=== PATIENT | female | born 1950 | race Caucasian/White ===

== ENCOUNTER → 2016-12-03 | Outpatient (CLI) | payer MEDICARE, OTHER ==
[~2016-12-03] MED LIST: ALLEGRA ALLERGY60 MG PO; ASPIRIN 81M81 MG/TA2 PO; BONIVA PO; CALCIUM 600MG+D1 TAB PO; CENTRUM SILVER1 CTB PO; COLACE 100100 MG/CAP PO; CRANBERRY PO; EPIPEN 2-PAK1 MG/ML IM; LEXAPRO20 MG PO; MIRALAX PA17 GM/Dose PO; OYSTER SHELL C500 MG PO; RECLAST5 MG/100 M IV; VITAMIN D31000 IU PO; VITAMINC500CH
== END ==
LOC: MC.RAD 07:00
DX: Z12.31 Encounter for screening mammogram for malignant neoplasm of breast (principal)

== ENCOUNTER → 2017-12-09 | Outpatient (CLI) | payer MEDICARE, OTHER ==
[~2017-12-09] MED LIST changes: -ALLEGRA ALLERGY60 MG PO; -CALCIUM 600MG+D1 TAB PO; -MIRALAX PA17 GM/Dose PO; -RECLAST5 MG/100 M IV; -VITAMINC500CH
== END ==
LOC: MC.RAD 12-06 07:00
DX: Z12.31 Encounter for screening mammogram for malignant neoplasm of breast (principal)

== ENCOUNTER 2017-12-29 14:45 | Outpatient (CLI) | payer MEDICARE, OTHER ==
[~2017-12-29] VITALS: Ht 160 cm; Wt 89.7 kg
[2017-12-29] MEDS ORDERED: VITAMINC500CH (15:17)
[2017-12-29] MEDS ORDERED: CALCIUM 600MG+D1 TAB PO (15:17)
[2017-12-29] MEDS ORDERED: ALLEGRA ALLERGY60 MG PO (15:18)
[2017-12-29] MEDS ORDERED: MIRALAX PA17 GM/Dose PO (15:18)
[2017-12-29] MEDS ORDERED: RECLAST5 MG/100 M IV (15:19)
[2017-12-29 15:33] VITALS: BP 116/73; PULSE 71; TEMP 98.1
== END 2017-12-29 16:00 | disposition home or self-care (01) ==
LOC: EUO 14:45
DX: M81.0 Age-related osteoporosis without current pathological fracture (principal)
CPT/HCPCS: J3489

== ENCOUNTER 2019-01-04 09:23 | Outpatient (CLI) | payer MEDICARE, OTHER ==
[~2019-01-04] VITALS: Ht 160 cm; Wt 111.4 kg
[~2019-01-04 09:23] MED LIST changes: +ALLEGRA ALLERGY60 MG PO; +CALCIUM 600MG+D1 TAB PO; +MIRALAX PA17 GM/Dose PO; +RECLAST5 MG/100 M IV; +VITAMINC500CH
[2019-01-04 10:17] VITALS: BP 126/65; PULSE 68; TEMP 97.5
== END 2019-01-04 10:48 | disposition home or self-care (01) ==
LOC: EUO 09:23
DX: M81.0 Age-related osteoporosis without current pathological fracture (principal)
CPT/HCPCS: J3489

== ENCOUNTER 2023-09-14 13:47 | Day surgery (SDC) | payer MEDICARE ==
[~2023-09-14] VITALS: Ht 157.5 cm; Wt 82.7 kg
[~2023-09-14 13:47] MED LIST changes: +LR 1,000 ML IV SCH
[2023-09-14 17:03] VITALS: BP 118/68; PULSE 60; TEMP 97.3
[2023-09-14] MEDS ORDERED: CRANBERRY500 M3 PO (17:11)
[2023-09-14] MEDS ORDERED: COMPLETE SENIOR1 TA1 PO (17:12)
[2023-09-14] MEDS ORDERED: CALCIUM/MAGNESI1 T13 PO (17:13)
[2023-09-14] MEDS ORDERED: Rocuronium 50 MG/5 ML Multi-Dose VIAL ONE (18:01)
[2023-09-14] MEDS ORDERED: Lidocaine PF 2% (20 MG/ML) 5 ML VIAL ONE (18:01)
[2023-09-14] MEDS ORDERED: fentaNYL 50 MCG/ML 2 ML VIAL ONE (18:04)
[2023-09-14] MEDS ORDERED: oxyCODONE 5 MG TAB PO PRN (18:30)
[2023-09-14] MEDS ORDERED: Ondansetron 4 MG/2 ML VIAL IV PRN (18:30)
[2023-09-14] MEDS ORDERED: Morphine 4 MG/ML VIAL IV PRN (18:30)
[2023-09-14] MEDS ORDERED: Naloxone 0.4 MG/ML VIAL IV PRN (18:30)
[2023-09-14] MEDS ORDERED: Topical Skin Adhesive 1 EACH (1 ML) TOP ONE (19:24)
[2023-09-14] MEDS ORDERED: Acetaminophen 500 MG TAB PO SCH (19:26)
[2023-09-14 20:45] VITALS: BP 148/60; PULSE 80
[2023-09-14 21:00] VITALS: BP 111/67; PULSE 73
[2023-09-14 21:15] VITALS: BP 119/70; PULSE 75
[2023-09-14 21:30] VITALS: BP 165/102; PULSE 91
--- NOTE | 2023-09-14 21:59 | NUR ---
PATIENT UP TO ROOM FROM PACU AT APPROXIMATELY 2044. POST OP VITALS RUNNING. POST OP FLUIDS INFUSING INTO RIGHT AC. PATIENT DENIES ANY PAIN. PATIENT TOLERATING ICE CHIPS AND SIPS OF WATER, DIET ADVANCED. PATIENT ON RA. POWELL TO DD WITH PINK OUTPUT. PATIENT RESTING IN BED, SCHEDULED TYLENOL ADMINISTERED. NO FURTHER NEEDS. CALL LIGHT IN REACH.
[2023-09-14 22:00] VITALS: BP 152/73; PULSE 94
[2023-09-15] VITALS: BP 150/62; PULSE 78; TEMP 97.9
[2023-09-15 01:00] VITALS: BP_SYST 150
[2023-09-15] MEDS ORDERED: Acetaminophen 500 MG TAB PO SCH (03:30)
[2023-09-15 03:45] VITALS: BP 138/84; PULSE 103; TEMP 98.3
[2023-09-15 04:23] VITALS: BP_SYST 138
[2023-09-15 08:00] VITALS: BP_SYST 115
--- NOTE | 2023-09-15 08:00 | NUR ---
PATIENT IS A&O X2, DISPLAYS FORGETFULNESS, OFTEN ASKING THE SAME QUESTIONS. VSS. NO COMPLAINTS. HEAD TO TOE ASSESSMENT WNL. RIGHT AC IV TO INT. POWELL TO DD. PATIENT RESTING UP IN BED WITH NO NEEDS. PLAN IS TO DISCHARGE HOME LATER THIS AM. PATIENT ALREADY CALLED .
[2023-09-15 08:08] VITALS: BP 115/75; PULSE 109; TEMP 98
[2023-09-15] MEDS ORDERED: LR 1,000 ML IV SCH (09:00)
[2023-09-15] MEDS ORDERED: EPI-PEN JR0.5 MG/ML IM (09:09)
--- NOTE | 2023-09-15 10:24 | NUR ---
SW met with patient to complete initial assessment for discharge planning. Patient verified that she lives in [place] with her /DPOA Ismael ([phone]). Ismael was present for assessment as well. Patient sees Dr. Ramirez as her PCP and uses [facility]. She has a walker, shower chair and grab bars at home. Patient reports being independent with daily activities and states that her helps her a lot. Patient plans to return home at discharge and declines any or home services. Discharge plan: Home
--- NOTE | 2023-09-15 10:25 | NUR ---
PATIENT DISCHARGING HOME, SEE ORDERS. GAVE DISCHARGE INSTRUCTIONS TO PATIENT & , POWELL CATH TEACHING & SUPPLIES, AND DISCUSSED F/U APT. ANSWERED QUESTIONS/CONCERNS. DC'D RIGHT AC IV AND COVERED SITE WITH GAUZE & COBAN. PATIENT DISCHARGED VIA WC TO PERSONAL VEHICLE WITH .
--- NOTE | 2023-09-15 10:31 | NUR ---
Initial visit; Patient thanked Traffic Technician for looking in on her and states she has had Bladder stones that were very painful but she is recovering well. Sarah was pleased that Traffic Technician asked if she would like prayer. She and Traffic Technician prayed together, she thanked Traffic Technician again stating she couldn't do without prayer and God.
--- NOTE | 2023-09-17 12:07 | NUR ---
ticket worker spoke with patient today, as she calls stating she needs help in the home. Worker provided home health information and contacted Dr Huggins's nurse, Trista, to advise patient was reaching out for additional help in the home. Trista advises that patient needs to see Dr Ramirez to discuss home health. Worker shared this with the patient and encouraged her to call Dr Huggins's office to schedule an appointment. Patient verbalizes understanding of the above information.
== END 2023-09-15 10:25 | disposition home or self-care (01) ==
LOC: SDCO 13:47 → SURG 21:09 → SDCO 09-15 10:25
DX: N21.0 Calculus in bladder (principal); Z87.891 Personal history of nicotine dependence
CPT/HCPCS: OP; A9284; J1920; J2704; J3010; J7120

== ENCOUNTER 2023-09-17 20:40 | Inpatient (IN) | payer MEDICARE ==
[~2023-09-17] VITALS: Ht 157.5 cm; Wt 83.2 kg
[~2023-09-17 20:40] MED LIST changes: +CALCIUM/MAGNESI1 T13 PO; +COMPLETE SENIOR1 TA1 PO; +CRANBERRY500 M3 PO; -LR 1,000 ML IV SCH; -VITAMINC500CH; +VITAMINC500CH PO
[2023-09-17 22:05] VITALS: BP 152/88; PULSE 113; TEMP 98.2
[2023-09-17 22:19] VITALS: BP_SYST 152
[2023-09-17] MEDS ORDERED: TYLENOL 325MG325 MG PO (22:28)
[2023-09-17 22:30] VITALS: BP 142/68; PULSE 90; TEMP 98
[2023-09-17] MEDS ORDERED: Docusate Sodium 100 MG CAP PO SCH (22:42)
[2023-09-17] MEDS ORDERED: Polyethylene Glycol 3350 17 GM PDS PO SCH (22:42)
[2023-09-17] MEDS ORDERED: Acetaminophen 325 MG TAB PO PRN ×2 (22:45→23:15)
[2023-09-17] MEDS ORDERED: Bisacodyl 5 MG TAB PO SCH (22:45)
[2023-09-17] MEDS ORDERED: Fexofenadine 60 MG BID **** subs to Loratadine 10 MG DAILY PO PRN (22:45)
[2023-09-17] MEDS ORDERED: LR 1,000 ML IV SCH (22:45)
[2023-09-18] VITALS (19 sets, daily range): BP systolic 101–146; BP diastolic 45–93; PULSE 98–117; TEMP 97.5–98.7
[2023-09-18] MEDS ORDERED: Cefepime 1 G in Water For Injection,Sterile 10 ML IV SCH
[2023-09-18 07:02] LABS: CREATININE, serum 0.64 mg/dL (0.57-1.11); POTASSIUM 3.7 mEq/L (3.5-4.5)
[2023-09-18] MEDS ORDERED: Miconazole 2% Topical Powder BOTTLE TP SCH (09:00)
[2023-09-18] MEDS ORDERED: Ascorbic Acid 500 MG TAB PO SCH (09:00)
[2023-09-18] MEDS ORDERED: Pantoprazole 40 MG in NS 10 ML IV SCH (09:00)
[2023-09-18] MEDS ORDERED: Nystatin Powder **** subs to Miconazole Powder TOP SCH (09:00)
[2023-09-18] MEDS ORDERED: Loratadine 10 MG TAB PO SCH (09:00)
[2023-09-18] MEDS ORDERED: Lidocaine PF 2% (20 MG/ML) 5 ML VIAL ONE (09:51)
[2023-09-18] MEDS ORDERED: Phenylephrine 10 MG/ML VIAL ONE (09:51)
[2023-09-18] MEDS ORDERED: Ondansetron 4 MG/2 ML VIAL ONE (09:51)
[2023-09-18] MEDS ORDERED: fentaNYL 50 MCG/ML 2 ML VIAL ONE (09:51)
[2023-09-18] MEDS ORDERED: Ondansetron 4 MG/2 ML VIAL IV PRN (10:00)
[2023-09-18] MEDS ORDERED: fentaNYL 50 MCG/ML 1 ML SYRINGE/VIAL [PACU/SDC ONLY] IV PRN (10:00)
[2023-09-18] MEDS ORDERED: HYDROmorphone 1 MG/1 ML SYRINGE [PACU/SDC ONLY] IV PRN (10:00)
[2023-09-18] MEDS ORDERED: Lidocaine 2% (20 MG/ML) 20 ML UROJET UR ONE (11:00)
[2023-09-18] MEDS ORDERED: Iohexol 350 - 100 ML VIAL URETER-B ONE (11:00)
[2023-09-18 13:27] LABS: BASO % 0.2 % (0.0-2.0); EOS % 0.4 % (0.0-4.0); GRAN # 9.1 K/mm3 (1.4-6.5); GRAN % 84.4 % (42.2-75.2); HEMATOCRIT 42.2 % (37.0-47.0); HEMOGLOBIN 13.7 g/dl (12.5-16.0); LYMPH # 0.8 K/mm3 (1.2-3.4); LYMPH % 7.8 % (20.0-51.0); MEAN CELL VOLUME 92 fl (80.0-100.0); MEAN CORPUSCULAR HEMOGLOBIN 30 pg (27-31); MEAN CORPUSCULAR HGB CONC 33 g/dl (33.0-37.0); MEAN PLATELET VOLUME 11.7 fl (7.4-10.4); MONO # 0.7 K/mm3 (0.1-0.6); MONO % 6.8 % (1.7-9.3); PLATELET COUNT 221 K/mm3 (130-400); RED BLOOD COUNT 4.58 M/mm3 (4.10-5.30); REDCELL DISTRIBUTION WIDTH-CV 13.1 % (11.5-14.5)
[2023-09-19] VITALS (13 sets, daily range): BP systolic 106–131; BP diastolic 71–84; PULSE 99–109; TEMP 97.5–98.3
[2023-09-19 06:32] LABS: BASO % 0.2 % (0.0-2.0); EOS # 0.2 K/mm3 (0.0-0.7); EOS % 2.5 % (0.0-4.0); GRAN % 71.1 % (42.2-75.2); HEMOGLOBIN 11.9 g/dl (12.5-16.0); LYMPH # 1.4 K/mm3 (1.2-3.4); LYMPH % 16.9 % (20.0-51.0); MEAN CELL VOLUME 92 fl (80.0-100.0); MEAN CORPUSCULAR HEMOGLOBIN 31 pg (27-31); MEAN CORPUSCULAR HGB CONC 33 g/dl (33.0-37.0); MEAN PLATELET VOLUME 11.3 fl (7.4-10.4); MONO # 0.7 K/mm3 (0.1-0.6); MONO % 8.8 % (1.7-9.3); PLATELET COUNT 215 K/mm3 (130-400); REDCELL DISTRIBUTION WIDTH-CV 13.2 % (11.5-14.5)
[2023-09-19 06:43] LABS: HEMATOCRIT 35.9 % (37.0-47.0)
[2023-09-19 06:57] LABS: CALCIUM 9.4 mg/dL (8.4-10.2); CREATININE, serum 0.66 mg/dL (0.57-1.11); POTASSIUM 3.4 mEq/L (3.5-4.5)
[2023-09-20] VITALS (11 sets, daily range): BP systolic 120–146; BP diastolic 80–85; PULSE 97–105; TEMP 97.6–98.9
[2023-09-20 06:23] LABS: BASO % 0.3 % (0.0-2.0); EOS # 0.5 K/mm3 (0.0-0.7); EOS % 4.8 % (0.0-4.0); GRAN # 6.7 K/mm3 (1.4-6.5); GRAN % 69.8 % (42.2-75.2); HEMOGLOBIN 11.5 g/dl (12.5-16.0); LYMPH # 1.6 K/mm3 (1.2-3.4); LYMPH % 16.4 % (20.0-51.0); MEAN CELL VOLUME 92 fl (80.0-100.0); MEAN CORPUSCULAR HEMOGLOBIN 30 pg (27-31); MEAN CORPUSCULAR HGB CONC 33 g/dl (33.0-37.0); MEAN PLATELET VOLUME 10.6 fl (7.4-10.4); MONO # 0.7 K/mm3 (0.1-0.6); MONO % 7.6 % (1.7-9.3); PLATELET COUNT 221 K/mm3 (130-400); REDCELL DISTRIBUTION WIDTH-CV 13.2 % (11.5-14.5)
[2023-09-20 06:46] LABS: CALCIUM 9.3 mg/dL (8.4-10.2); CREATININE, serum 0.65 mg/dL (0.57-1.11); MAGNESIUM 1.9 mg/dL (1.6-2.6); POTASSIUM 3.6 mEq/L (3.5-4.5)
[2023-09-21] VITALS (7 sets, daily range): BP systolic 120–137; BP diastolic 80–83; PULSE 102–105; TEMP 97.5–98.4
[2023-09-21] MEDS ORDERED: AMOXICILLIN 8751 TAB PO (12:18)
== END 2023-09-21 13:54 | DRG 872 ==
LOC: SURG 20:40
PROVIDERS: Nurse Practitioner Family; ADMIT Internal Medicine
DX: A41.9 Sepsis, unspecified organism (principal); N39.0 Urinary tract infection, site not specified; I50.30 Unspecified diastolic (congestive) heart failure; N13.5 Crossing vessel and stricture of ureter without hydronephrosis; I05.0 Rheumatic mitral stenosis; N31.9 Neuromuscular dysfunction of bladder, unspecified; K81.9 Cholecystitis, unspecified; Z66 Do not resuscitate
CPT/HCPCS: A9284; C1769; C2617; C9113; J0690; J0692; J2371; J2405; J2704; J3010; J7120; Q9967

== ENCOUNTER 2023-10-26 13:04 | Day surgery (SDC) | payer MEDICARE ==
[~2023-10-26] VITALS: Ht 157.5 cm; Wt 79.5 kg
[~2023-10-26 13:04] MED LIST changes: +AMOXICILLIN 8751 TAB PO; +LR 1,000 ML IV SCH; +TYLENOL 325MG325 MG PO
[2023-10-26 13:57] VITALS: BP 119/72; PULSE 92; TEMP 97.5
[2023-10-26] MEDS ORDERED: Lidocaine PF 2% (20 MG/ML) 5 ML VIAL ONE (15:12)
[2023-10-26] MEDS ORDERED: fentaNYL 50 MCG/ML 2 ML VIAL ONE (15:15)
[2023-10-26] MEDS ORDERED: NS 10 ML IV ONE (15:16)
[2023-10-26] MEDS ORDERED: dexAMETHasone 10 MG/ML VIAL ONE (15:51)
[2023-10-26] MEDS ORDERED: Ondansetron 4 MG/2 ML VIAL ONE (15:51)
--- NOTE | 2023-10-26 16:01 | NUR ---
JAMMIE received call from OP surgery nurse stating patient needs to be set up for for wound care. JAMMIE went to unit and spok with Dr. Oneill who states that patient will need wound care to start on . He stated he will write orders for wound care. JAMMIE then called patient's at home who stated that patient has been on service with [facility] and they just stopped a couple of days ago. JAMMIE explained to that patient will need wound care and SW can contact [facility] to discuss. agreeable. JAMMIE spoke with Brian at [facility] who stated that patient is on service and they did stop therapy a couple of days ago. He stated he would need wound description and wound care orders. No documentation in chart at this time. JAMMIE will review chart tomorrow morning since patient is curently in procedure. JAMMIE will fax records to [facility] tomorrow morning. JAMMIE called ambulatory surgery unit and communicated [facility] requests to RN. she will inform Dr. Oneill.
[2023-10-26] MEDS ORDERED: hydrALAZINE 20 MG/ML 1 ML VIAL IV PRN (16:15)
[2023-10-26] MEDS ORDERED: HYDROmorphone 1 MG/1 ML SYRINGE [PACU/SDC ONLY] IV PRN (16:15)
[2023-10-26] MEDS ORDERED: Meperidine 50 MG/ML 1 ML VIAL IV PRN (16:15)
[2023-10-26] MEDS ORDERED: Ondansetron 4 MG/2 ML VIAL IV PRN ×2 (16:15→17:00)
[2023-10-26] MEDS ORDERED: fentaNYL 50 MCG/ML 1 ML SYRINGE/VIAL [PACU/SDC ONLY] IV PRN (16:15)
[2023-10-26] MEDS ORDERED: Lidocaine 2% (20 MG/ML) 20 ML UROJET UR ONE (16:48)
[2023-10-26] MEDS ORDERED: Naloxone 0.4 MG/ML VIAL IV PRN (17:00)
[2023-10-26] MEDS ORDERED: Hyoscyamine 0.125 MG Sublingual TAB SL PRN (17:00)
[2023-10-26] MEDS ORDERED: Acetaminophen 325 MG TAB PO PRN (17:00)
[2023-10-26] MEDS ORDERED: CEPHALEXIN500 M1 PO (17:08)
[2023-10-26 17:40] VITALS: BP 140/50; PULSE 94; TEMP 97.5
[2023-10-26 17:55] VITALS: BP 151/68; PULSE 92
[2023-10-26] MEDS ORDERED: Acetaminophen 500 MG TAB PO SCH (17:59)
--- NOTE | 2023-10-26 18:15 | NUR ---
1740 RETURNS TO ROOM 1 PER CART. WITH HOB ELEVATED 40 DEGREES. AWAKE, ALERT. RESP UNLABORED. VITAL SIGNS OBTAINED. ABD SOFT. LOWER MID ABD DRESSING CLEAN DRY AND INTACT. DENIES PAIN OR URINARY URGENCY. CALL LIGHT AT SIDE 1755 HOB ELEVATED 80 DEGREES. TOLERATES PO WATER, SALTINE CRACKERS AND ICE CREAM WITHOUT NAUSEA 1800 DISCHARGE INSTRUCTIONS REVIEWED. PATIENT VERBALIZES UNDERSTANDING. COPY PROVIDED IN DISCHARGE FOLDER 1805 SITS ON EDGE OF BED AND DRESSES, BOTH WITH ASSIST, THEN STAND TRANSFERS TO WHEELCHAIR WITH 2 ASSIST
--- NOTE | 2023-10-26 18:38 | NUR ---
1545 CLAUDE FROM PROFESSOR OF MUSIC HERE, STATES THAT TOMORROW SHE WILL FAX ORDERS PLACED FOR HOME HEALTH CARE TO APPROPRIATE RECIPIENT IN ORDER TO IMPLEMENT HOME HEALTH CARE VISITS FOR DRESSING CHANGES
--- NOTE | 2023-10-27 08:24 | NUR ---
JAMMIE faxed discharge orders and clinicals to [facility].
== END 2023-10-26 18:15 | disposition home or self-care (01) ==
LOC: SDCO 13:04
DX: N20.1 Calculus of ureter (principal); L02.211 Cutaneous abscess of abdominal wall; Z87.891 Personal history of nicotine dependence
CPT/HCPCS: C1726; C1769; C2617; J0690; J1100; J2175; J2405; J2704; J3010; J7120

== ENCOUNTER 2023-10-27 15:25 | Inpatient (IN) | payer MEDICARE ==
[~2023-10-27] VITALS: Ht 157.5 cm; Wt 79.5 kg
[~2023-10-27 15:25] MED LIST changes: +CEPHALEXIN500 M1 PO; -LR 1,000 ML IV SCH
[2023-10-27 16:44] LABS: HEMATOCRIT 42.2 % (37.0-47.0); HEMOGLOBIN 13.7 g/dl (12.5-16.0); MEAN CELL VOLUME 95 fl (80.0-100.0); MEAN CORPUSCULAR HEMOGLOBIN 31 pg (27-31); MEAN CORPUSCULAR HGB CONC 33 g/dl (33.0-37.0); PLATELET COUNT 275 K/mm3 (130-400); RED BLOOD COUNT 4.45 M/mm3 (4.10-5.30); REDCELL DISTRIBUTION WIDTH-CV 13.2 % (11.5-14.5)
[2023-10-27] MEDS ORDERED: LR 1,000 ML IV ONE (16:45)
[2023-10-27 17:05] LABS: ALBUMIN 2.9 g/dL (3.4-4.8); BILIRUBIN,TOTAL 0.3 mg/dL (0.2-1.2); CALCIUM 9.3 mg/dL (8.4-10.2); CREATININE, serum 0.94 mg/dL (0.57-1.11); MAGNESIUM 1.8 mg/dL (1.6-2.6); POTASSIUM 3.9 mEq/L (3.5-4.5); TOTAL PROTEIN 7.5 g/dl (6.2-8.1)
[2023-10-27 17:12] LABS: BAND 12 % (0-10); LYMPHOCYTE 1 % (20.0-51.0); NEUTROPHILS 85 % (42.0-75.2)
[2023-10-27 17:20] LABS: URINE APPEARANCE CLEAR (CLEAR/HAZY); URINE BLOOD 3+ (NEGATIVE); URINE COLOR YELLOW (YELLOW); URINE GLUCOSE 1+ (NEGATIVE); URINE KETONE NEGATIVE (NEGATIVE); URINE NITRATE NEGATIVE (NEGATIVE); URINE PROTEIN(semi-quant) 2+ (NEGATIVE)
[2023-10-27] MEDS ORDERED: NS 100 ML IV SCH (17:25)
[2023-10-27] MEDS ORDERED: Iohexol 300 - 100 ML VIAL IV ONE (17:29)
[2023-10-27 17:37] LABS: COLLECTION METHOD CLEAN CATCH
[2023-10-27] MEDS ORDERED: cefTRIAXone 1 G in Water For Injection,Sterile 10 ML IV ONE (18:15)
[2023-10-27] MEDS ORDERED: LR 1,000 ML IV SCH (18:30)
[2023-10-27] MEDS ORDERED: Docusate Sodium 100 MG CAP PO PRN (18:30)
[2023-10-27] MEDS ORDERED: Acetaminophen 325 MG TAB PO PRN (18:30)
[2023-10-27] MEDS ORDERED: Bisacodyl 5 MG TAB PO PRN (18:30)
--- NOTE | 2023-10-27 20:00 | NUR ---
PT ARRIVED TO ROOM 323 FROM ED VIA STRETCHER & TRANSFERRED OVER VIA SLIDEBOARD. HERE FOR UROSEPSIS. PT IS A&O X3 & DROWSY, REPORTS SHE "JUST WANTS TO SLEEP". PT IS TACHYCARDIC, OTHER VITALS WNL. POWELL TO DD WITH YELLOW OUTPUT & SOME SEDIMENT. IV ABX INFUSING TO LEFT AC VIA PUMP & LR AT 100MLS/HR STARTED. PT HAS GAUZE DRESSING TO LOWER ABD ABCESS, SOME BLOODY DRAINAGE NOTED. ADMISSION COMPLETED EXCEPT MED REC, WHEN ASKING PT ABOUT MEDICATION SHE TAKES AT HOME SHE STATES "YES I WANT THEM" BUT STATES SHE DOES NOT KNOW WHAT THEY ARE, REPORTS HER WILL BRING IN A LIST TOMORROW. ALSO ASKED PT TO VERIFY HER ALLERGIES & PT LAUGHED & STATED "I HAVE A LOT, I DONT KNOW THEM". PT DENYING PAIN OR N/V. ORIENTED PT TO ROOM. CALL LIGHT IN REACH
[2023-10-27 20:05] VITALS: BP 132/71; PULSE 114; TEMP 99.9
[2023-10-27] MEDS ORDERED: Insulin Lispro (HumaLOG) SQ SCH (21:00)
--- NOTE | 2023-10-27 23:00 | NUR ---
DRESSING TO LOWER ABD ABCESS CHANGED TO WET TO DRY PER ORDERS. PT NOW NPO & VOICES UNDERSTANDING. CALL LIGHT IN REACH
[2023-10-27 23:44] VITALS: BP 160/80; PULSE 122; TEMP 97.7
[2023-10-28] VITALS (8 sets, daily range): BP systolic 100–131; BP diastolic 57–84; PULSE 94–107; TEMP 98–98.9
--- NOTE | 2023-10-28 05:35 | NUR ---
PT RESTING IN BED WITH UNLABORED RESP. DENYING NEEDS. CALL LIGHT IN REACH
[2023-10-28 06:00] LABS: CALCIUM 8.2 mg/dL (8.4-10.2); CREATININE, serum 0.75 mg/dL (0.57-1.11); POTASSIUM 3.4 mEq/L (3.5-4.5)
[2023-10-28 06:04] LABS: BASO % 0.1 % (0.0-2.0); GRAN # 12.3 K/mm3 (1.4-6.5); GRAN % 88.7 % (42.2-75.2); HEMATOCRIT 37.3 % (37.0-47.0); HEMOGLOBIN 12.6 g/dl (12.5-16.0); LYMPH # 0.6 K/mm3 (1.2-3.4); LYMPH % 4.4 % (20.0-51.0); MEAN CORPUSCULAR HEMOGLOBIN 30 pg (27-31); MEAN CORPUSCULAR HGB CONC 34 g/dl (33.0-37.0); MONO # 0.9 K/mm3 (0.1-0.6); MONO % 6.3 % (1.7-9.3); PLATELET COUNT 225 K/mm3 (130-400); RED BLOOD COUNT 4.14 M/mm3 (4.10-5.30); REDCELL DISTRIBUTION WIDTH-CV 13.3 % (11.5-14.5)
[2023-10-28 06:17] LABS: MEAN CELL VOLUME 90 fl (80.0-100.0)
[2023-10-28] MEDS ORDERED: Dextrose (Glucose) 15 GM (4 x 3.75 GM) Chewable TABLET PACK PO PRN (07:45)
[2023-10-28] MEDS ORDERED: Glucagon 1 MG VIAL IM PRN (07:45)
[2023-10-28] MEDS ORDERED: Dextrose 50% Water 25 GM/50 ML SYRINGE IV PRN (07:45)
--- NOTE | 2023-10-28 08:26 | NUR ---
SHIFT ASSESSMENT COMPLETED AT THIS TIME. PT A&OX4 AND DENIES PAIN, SOB, AND NAUSEA AT THIS TIME. PT REQUESTS NAMES IF ANTIBIOTICS SHE IS RECIEVING. THIS NURSE GAVE THOSE NAMES OF MEDICATIONS. PT REMAINS NPO D/T SPEECH EVAL THIS MORNING FOR POSSIBLE ASPIRATION. ORAL MORNING MEDICATIONS HELD. PT RESTING IN BED AT THIS TIME WITH NO FURTHER NEEDS. POWELL CATHETER INTACT WITH CLEAR YELLOW URINE IN BAG. FALL PRECAUTIONS IN PLACE. CALL LIGHT WIHTIN REACH.
[2023-10-28] MEDS ORDERED: Potassium Chloride 10 mEq/100 mL IV Soln IV SCH (08:45)
[2023-10-28] MEDS ORDERED: Calcium Citrate/Vit D3 200 mg-250 Units TAB PO SCH (09:00)
[2023-10-28] MEDS ORDERED: Polyethylene Glycol 3350 17 GM PDS PO SCH (09:00)
[2023-10-28] MEDS ORDERED: Loratadine 10 MG TAB PO SCH (09:00)
[2023-10-28] MEDS ORDERED: Fexofenadine 60 MG BID **** subs to Loratadine 10 MG DAILY PO SCH (09:00)
[2023-10-28] MEDS ORDERED: Ascorbic Acid 500 MG TAB PO SCH (09:00)
[2023-10-28] MEDS ORDERED: Vancomycin 1.25 GM,Special Dose/Pharmacy Prepared 1.25 GM in NS 250 ML IV SCH (11:00)
--- NOTE | 2023-10-28 11:05 | NUR ---
African Studies Professor met with patient to discuss discharge planning. Patient lives in [facility] with her , Ismael (ph#[phone]) [address] sees Dr. Ramirez for primary care out of [facility]. Patient gets medications from [facility] with no difficulties. Patient does not drive and relies on Ismael for transportation to medical appointments. Patient uses a walker at all times after a recent fall. Patient is mostly independent with ADLS but stated her helps her wash her feet. Patient stated she has DPOA-HC designating Ismael. Patient is hopeful to return home but advised if any rehab is recommended she has been to [facility] before. SW contacted patient's , Ismael to check and explain discharge planning process. Discharge Plan: Home, pending PT/OT eval and recommendations
--- NOTE | 2023-10-28 11:57 | NUR ---
Data: Spiritual care visit attempted. Patient was sleeping. Assessment: None. Patient was sleeping. Plan of Care: Chaplains will remain available as needed/requested while Patient is admitted to this hospital.
[2023-10-28] MEDS ORDERED: *Potassium Replacement Protocol MC SCH (12:15)
--- NOTE | 2023-10-28 17:15 | NUR ---
urology rounding at this time. plan is outpatient procedure next week. unless patient is still in the hospital for medical needs.
--- NOTE | 2023-10-28 20:00 | NUR ---
Assessment complete. A&Ox3. Denies pain/nausea/shortness of breath. VS stable. Neuro checks WNL. Currently on RA. Left AC INT flushes without difficulty-no s/s of infiltration noted. LR@100ml/hr. De Anda cath with yellow cloudy urine. Tolerating PO. Plan of care discussed for this shift to include meds/pain control/dressing change/calling for questions/concerns. Verbalizes understanding. Call light in reach. WIll monitor.
--- NOTE | 2023-10-28 22:00 | NUR ---
Dressing change completed at this time. Abdominal wound packing removed. New Iodoform placed, covered with saline 4x4s, ABD and tape. Patient tolerated well. Will monitor.
[2023-10-29] VITALS (12 sets, daily range): BP systolic 112–139; BP diastolic 66–96; PULSE 78–100; TEMP 97.4–98.6
--- NOTE | 2023-10-29 01:00 | NUR ---
Patient resting with eyes closed. No s/s of pain noted. Will monitor.
--- NOTE | 2023-10-29 05:21 | NUR ---
Patient slept most of night. Denied pain/nausea/shortness of breath. VS stable. DId have a large liquid incontinent stool this AM. LR@100ml/hr to left AC IV infusing without difficulty. NO s/s of infiltration noted. De Anda cath with yellow cloudy urine. Denies current questions/concerns. Call light in reach. Will monitor.
[2023-10-29 06:59] LABS: BASO % 0.5 % (0.0-2.0); EOS # 0.1 K/mm3 (0.0-0.7); EOS % 0.9 % (0.0-4.0); GRAN # 5.2 K/mm3 (1.4-6.5); HEMATOCRIT 37.6 % (37.0-47.0); HEMOGLOBIN 12.4 g/dl (12.5-16.0); LYMPH # 0.7 K/mm3 (1.2-3.4); LYMPH % 11.1 % (20.0-51.0); MEAN CELL VOLUME 94 fl (80.0-100.0); MEAN CORPUSCULAR HEMOGLOBIN 31 pg (27-31); MEAN CORPUSCULAR HGB CONC 33 g/dl (33.0-37.0); MEAN PLATELET VOLUME 10.7 fl (7.4-10.4); MONO # 0.6 K/mm3 (0.1-0.6); MONO % 9.2 % (1.7-9.3); PLATELET COUNT 178 K/mm3 (130-400); RED BLOOD COUNT 3.99 M/mm3 (4.10-5.30); REDCELL DISTRIBUTION WIDTH-CV 13.5 % (11.5-14.5)
[2023-10-29 07:07] LABS: CALCIUM 8.1 mg/dL (8.4-10.2); CREATININE, serum 0.67 mg/dL (0.57-1.11); POTASSIUM 3.6 mEq/L (3.5-4.5)
[2023-10-29] MEDS ORDERED: Potassium Bicarbonate/Citrate 20 MEQ Effervescent TAB PO SCH (08:30)
--- NOTE | 2023-10-29 11:25 | NUR ---
PATIENT ALERT AND ORIENTED X4. VSS. PATIENT HERE FOR UROSEPSIS. POWELL TO DD WITH GEORGINA OUTPUT. IV TO LEFT AC WITH LR RUNNING AT 75ML/HOUR. AM MEDS ADMINISTERED. PATIENT DENIES ANY PAIN THIS AM. NO FURTHER NEEDS. CALL LIGHT IN REACH. BED ALARM ON.
--- NOTE | 2023-10-29 13:49 | NUR ---
Bundling Machine Operator met with patient to discuss PT/OT recommendation for HH vs SNF. Patient put her , Ismael on speakerphone to join in discussion. Ismael stated to patient that he would support whatever she decided. Ultimately, patient prefers to be at home and would like to return home with [facility] (patient currently on service with them). JAMMIE contacted Sanjeev at [facility] and sent referral via secure email. Discharge Plan; Home with [facility]
--- NOTE | 2023-10-29 17:30 | NUR ---
Accelerator Operator was approached by patient's RN who stated patient would like to speak with SW. SW followed up with patient who stated she feels she will need SNF instead of HH. Patient's first preference is [facility]. SW discussed other local options and patient stated she would be open to SW sending referrals to [facility] and [facility] as additional options. SW sent referrals to all three via secure email. Discharge Plan: SNF, referrals pending
--- NOTE | 2023-10-29 20:00 | NUR ---
PATIENT IS A&O. VSS. C/O NAUSEA AND NOTED SMALL AMOUNTS OF EMESIS WITH PHLEGM. CALLED HOSPITALIST, GAVE IV ZOFRAN. PATIENT ALSO PLACED ON BED MURGUIA SHE WAS WEAK & DIZZY. PATIENT HAD A LARGE, LOOSE BM AND REPORTS SHE FEELS MUCH BETTER NOW. IV ABX INFUSING VIA PUMP INTO RIGHT HAND IV. ABD DSG NOTED VERY SMALL AREA OF DRAINAGE AND IS PACKED WITH IODAFORM, 4X4'S, ABD & FOAM TAPE. POWELL TO DD. HEAD TO TOE ASSESSMENT COMPLETE. NO OTHER NEEDS AT THIS TIME. CALL LIGHT IN REACH.
[2023-10-29] MEDS ORDERED: Ondansetron 4 MG/2 ML VIAL IV PRN (20:15)
[2023-10-30] VITALS (11 sets, daily range): BP systolic 113–134; BP diastolic 77–86; PULSE 82–108; TEMP 97.7–98.3
--- NOTE | 2023-10-30 | NUR ---
CHANGED ABD DSG, REMOVED OLD PACKING AND INSERTED IODAFORM PACKING, WET TO DRY, 4X4'S, ABD & HYPAFIX. NOTED FOUL SMELL AND LARGE AMOUNTS OF SEROSANG FLUID DRAINAGE. PATIENT TOLERATED WELL. REPOSITIONED TO COMFORT. CALL LIGHT IN REACH.
--- NOTE | 2023-10-30 02:15 | NUR ---
PATIENT CALLED OUT STATING SHE FEELS WET AND THINKS HER POWELL LEAKED AGAIN. UPON ASSESSMENT, PATIENT'S POWELL DOES APPEAR TO BE LEAKING URINE. DEFLATED POWELL BALLOON AND ADVANCED POWELL, INSTILLED AN ADDITIONAL 5CC OF FLUID INTO POWELL BALLOON. PATIENT CLEANED UP AND NEW LINENS & GOWN PROVIDED. ABD DSG IS CD&I. PATIENT REPOSITIONED TO COMFORT AND CALL LIGHT IN REACH.
[2023-10-30 06:33] LABS: BASO % 0.3 % (0.0-2.0); EOS # 0.2 K/mm3 (0.0-0.7); EOS % 2.4 % (0.0-4.0); GRAN # 4.3 K/mm3 (1.4-6.5); HEMATOCRIT 37.5 % (37.0-47.0); HEMOGLOBIN 12.4 g/dl (12.5-16.0); LYMPH # 1.3 K/mm3 (1.2-3.4); LYMPH % 20.9 % (20.0-51.0); MEAN CELL VOLUME 93 fl (80.0-100.0); MEAN CORPUSCULAR HEMOGLOBIN 31 pg (27-31); MEAN CORPUSCULAR HGB CONC 33 g/dl (33.0-37.0); MEAN PLATELET VOLUME 10.9 fl (7.4-10.4); MONO # 0.4 K/mm3 (0.1-0.6); MONO % 7.1 % (1.7-9.3); PLATELET COUNT 203 K/mm3 (130-400); RED BLOOD COUNT 4.05 M/mm3 (4.10-5.30); REDCELL DISTRIBUTION WIDTH-CV 13.4 % (11.5-14.5)
[2023-10-30 06:37] LABS: CALCIUM 8.6 mg/dL (8.4-10.2); CREATININE, serum 0.7 mg/dL (0.57-1.11); POTASSIUM 3.8 mEq/L (3.5-4.5)
[2023-10-30] MEDS ORDERED: *Potassium Replacement Protocol MC SCH (07:30)
[2023-10-30] MEDS ORDERED: Potassium Bicarbonate/Citrate 20 MEQ Effervescent TAB PO ONE (07:30)
--- NOTE | 2023-10-30 09:53 | NUR ---
PATIENT ALERT AND ORIENTED X4. VSS. PATIENT HERE FOR UROSEPSIS. IV TO RIGHT HAND INT WITH FLUIDS RUNNING AT 75ML/HOUR. PATIENT ON RA. POWELL TO DD WITH GEORGINA OUTPUT. AM MEDS ADMINISTERED. NO FURTHER NEEDS. CALL LIGHT IN REACH. BED ALARM ON.
--- NOTE | 2023-10-30 12:31 | NUR ---
JAMMIE notified that patient can be stable for discharge to SNF today if bed available. JAMMIE spoke with Denise at [facility], patient's first choice, and was informed that they will not be able to admit until Wednesday when nursing can look at her clinicals related to wound care. JAMMIE spoke with Esau at [facility] who states that they do not have a bed available today but will continue to review clincials. Updates sent via secure email to both facilities. Discharge plan: SNF
--- NOTE | 2023-10-30 20:30 | NUR ---
UPON SHIFT ASSESSMENT, PATIENT WAS AWAKE IN BED AND AXO X4. DRESSING TO ABDOMEN IS CDI. NEUROS ARE WNL/BASELINE. POWELL IS LEAKING AND NEW 18FR PLACED. NEW POWELL DRAINING PALE YELLOW URINE. PATIENT VOICES FRUSTRATION OVER SITUATION AND BECOMING MORE OF [place] [facility] -SOCIAL WORK AWARE AND LOOKING FOR REHAB PLACEMENT. EDUCATION PROVIDED. PATIENT STATES NO OTHER NEEDS AT THIS TIME AND DENIES PAIN. CALL LIGHT WITHIN REACH, BED ALARM ON.
[2023-10-30] MEDS ORDERED: Linezolid 600 MG TAB PO SCH (21:00)
[2023-10-31] VITALS (12 sets, daily range): BP systolic 101–144; BP diastolic 68–94; PULSE 79–100; TEMP 98–98.6
--- NOTE | 2023-10-31 04:00 | NUR ---
USING ASEPTIC TECHNIQUE, DRESSING CHANGE PERFORMED. PATIENT TOLERATED WELL.
[2023-10-31] MEDS ORDERED: Potassium Bicarbonate/Citrate 20 MEQ Effervescent TAB PO ONE (08:00)
--- NOTE | 2023-10-31 10:22 | NUR ---
PATIENT ALERT AND ORIENTED X4. VSS. PATIENT HERE FOR UROSEPSIS. PATIENT DENIES PAIN THIS AM. IV TO RIGHT FA INT AND FLUSHES WELL. POWELL TO DD WITH GEORGINA OUTPUT. DRESSING INTACT. AM MEDS ADMINISTERED. PATIENT EATING BREAKFAST, REPORTS NOT SLEEPING WELL AT NIGHT, WOULD LIKE TO BE LEFT ALONE THIS AFTERNOON TO NAP. NO FURTHER NEEDS. CALL LIGHT IN REACH. BED ALARM ON.
--- NOTE | 2023-10-31 11:06 | NUR ---
SW reviewed Medicare IM form with patient in preparation for possible discharge tomorrow. Patient voiced understanding and signed form . Original on chart and copy provided to patient. Discharge plan: SNF
--- NOTE | 2023-10-31 12:29 | NUR ---
Clinical updates sent to [facility] via secure email
[2023-10-31] MEDS ORDERED: Miconazole 2% Topical Powder BOTTLE TP PRN (16:45)
--- NOTE | 2023-10-31 19:25 | NUR ---
ASSISTED PT TO BSC WITH 2 ASSIST/GAIT BELT. HAS SMALL LOOSE BR STOOL. POWELL CATHETER SECURE DRAINING YELLOW URINE. DRSG INTACT TO ABD. BACK TO BED.
--- NOTE | 2023-10-31 21:30 | NUR ---
IV ANTIBIOTIC INFUSING TO RT HAND SITE WITHOUT PROBLEM. DRSG CHANGED TO LOWER ABD, REMOVED PACKING AND REPLACED. SALINE GAUZE PLACED AND ABD COVERING. PT HAD SEROUS FLUID LEAKING FROM HOLE PRIOR TO REPLACING DRSG.
[2023-10-31] MEDS ORDERED: Cholestyramine/Aspartame (Sugar Free) 4 GM PACK PO SCH (22:00)
--- NOTE | 2023-10-31 23:45 | NUR ---
ASSISTED TO BSC FOR BM.
[2023-11-01] VITALS (10 sets, daily range): BP systolic 108–120; BP diastolic 70–83; PULSE 87–100; TEMP 97.4–97.9
--- NOTE | 2023-11-01 11:14 | NUR ---
PATIENT ALERT AND ORIENTED X4. VSS. PATIENT HERE FOR UROSEPSIS. POWELL TO DD WITH GEORGINA OUTPUT. DRESSING INTACT ON ABDOMEN. IV TO RIGHT FA INT AND FLUSHES WELL. PATIENT DENIES ANY PAIN AT THIS TIME. AM MEDS ADMINISTERED. NO FURTHER NEEDS. CALL LIGHT IN REACH. BED ALARM ON.
--- NOTE | 2023-11-01 15:48 | NUR ---
Supervisor Photoengraving [facility] Patient was scheduled for an outpatient procedure with urology, however this will be done tomorrow during this inpatient stay. JAMMIE met with patient who confirmed [facility] is her first preference. SW provided update to both patient and her , Ismael. Discharge Plan: [facility]
--- NOTE | 2023-11-01 20:00 | NUR ---
Assessment complete. A&Ox3. Denies pain/nausea/shortness of breath. VS stable. INT to right hand flushes without difficulty. No s/s of infiltration noted. Blood sugar WNL. CUrrently on RA. De Anda cath with clear yellow urine. Up to bedside commode-+bm. Plan of care discussed for this shift to include meds/NPO 0000/dressing change/calling for questions/concerns. Verbalizes understanding. Call light in reach. Will monitor.
--- NOTE | 2023-11-01 22:00 | NUR ---
Dressing changed at this time-Iodoform/NS 4x4s/ABD and paper tape. Noted to have irritation/open area to right side from medipore tape. Substituted paper tape for this dressing change. Will monitor.
[2023-11-02] VITALS (19 sets, daily range): BP systolic 110–142; BP diastolic 45–84; PULSE 80–106; TEMP 96.3–98.3
--- NOTE | 2023-11-02 02:43 | NUR ---
Patient laying in bed playing on phone. States she is a little nervous about her procedure today and cant sleep. States she will just watch TV. Denies current needs. Call light in reach. Will monitor.
--- NOTE | 2023-11-02 05:16 | NUR ---
Patient had an uneventful night. Denied pain/nausea/shortness of breath. VS remained stable. INT to right hand flushes without difficulty. De Anda cath with clear yellow urine. Wet to dry dressing change completed at HS. Has remained NPO since 0000. Denies current questions/concerns. Call light in reach. Will monitor.
[2023-11-02 06:27] LABS: BASO # 0.1 K/mm3 (0.0-0.2); BASO % 0.7 % (0.0-2.0); EOS # 0.6 K/mm3 (0.0-0.7); EOS % 7.2 % (0.0-4.0); GRAN # 4.9 K/mm3 (1.4-6.5); GRAN % 59.7 % (42.2-75.2); HEMATOCRIT 37.2 % (37.0-47.0); HEMOGLOBIN 12.1 g/dl (12.5-16.0); LYMPH # 2.1 K/mm3 (1.2-3.4); LYMPH % 25.5 % (20.0-51.0); MEAN CELL VOLUME 93 fl (80.0-100.0); MEAN CORPUSCULAR HEMOGLOBIN 30 pg (27-31); MEAN CORPUSCULAR HGB CONC 33 g/dl (33.0-37.0); MEAN PLATELET VOLUME 10.8 fl (7.4-10.4); MONO # 0.5 K/mm3 (0.1-0.6); PLATELET COUNT 256 K/mm3 (130-400); REDCELL DISTRIBUTION WIDTH-CV 13.9 % (11.5-14.5)
[2023-11-02 06:54] LABS: CALCIUM 8.9 mg/dL (8.4-10.2); CREATININE, serum 0.74 mg/dL (0.57-1.11); POTASSIUM 3.9 mEq/L (3.5-4.5)
[2023-11-02] MEDS ORDERED: NS 0 ML IV ONE (12:09)
[2023-11-02] MEDS ORDERED: fentaNYL 50 MCG/ML 2 ML VIAL ONE (12:09)
[2023-11-02] MEDS ORDERED: Lidocaine PF 2% (20 MG/ML) 5 ML VIAL ONE ×2 (12:09→13:54)
[2023-11-02] MEDS ORDERED: Ondansetron 4 MG/2 ML VIAL ONE ×2 (12:09→14:24)
--- NOTE | 2023-11-02 12:17 | NUR ---
Pt assessment completed earlier today. Pt is alert and oriented with no complaints of pain at this moment. She is resting in bed with her call light within reach. Her zosyn is running through her IV at this time with no signs of infiltration or phlebitis.
--- NOTE | 2023-11-02 12:48 | NUR ---
PATIENT GOING DOWN TO OR VIA BED. CONSENT ON CHART. NPO. IV FLUIDS TO GRAVITY TUBING READY TO GO, NOT INFUSING YET DUE TO HX OF CHF. OR GIVEN PATIENT STATUS UPDATE. PATIENT NOW OFF FLOOR.
--- NOTE | 2023-11-02 12:50 | NUR ---
PT WENT WITH NICOLAS TO THE OR. NURSE NOTIFIED
[2023-11-02] MEDS ORDERED: Lidocaine 2% (20 MG/ML) 20 ML UROJET UR ONE (13:40)
[2023-11-02] MEDS ORDERED: hydrALAZINE 20 MG/ML 1 ML VIAL IV PRN (14:00)
[2023-11-02] MEDS ORDERED: fentaNYL 50 MCG/ML 1 ML SYRINGE/VIAL [PACU/SDC ONLY] IV PRN (14:00)
[2023-11-02] MEDS ORDERED: Ondansetron 4 MG/2 ML VIAL IV PRN (14:00)
[2023-11-02] MEDS ORDERED: Meperidine 50 MG/ML 1 ML VIAL IV PRN (14:00)
[2023-11-02] MEDS ORDERED: NS 10 ML IV ONE (14:24)
[2023-11-02] MEDS ORDERED: ePHEDrine 50 MG/ML VIAL ONE (14:32)
--- NOTE | 2023-11-02 15:42 | NUR ---
Developer Evangelist faxed clinical updates to Aster at [facility].
--- NOTE | 2023-11-02 18:30 | NUR ---
PT IS LAYING IN HER BED WITH HER HEAD OF BED AT APPROXIMATELY 30 DEGREES, SHE WAS WATCHING TV BUT TOLD THIS NURSE THAT SHE IS "GOING TO REST". SHE HAD SURGERY EARLIER THIS AFTERNOON FOR HER KIDNEY STONE. ONCE SHE WAS BACK ON THE SURGICAL FLOOR, HER VISITED HER FOR APPOXIMATELY AN HOUR AND RETURNED HOME AFTER THEIR VISIT. POST-OP VITALS COMPLETED AT THIS TIME. CALL LIGHT IS WITHIN REACH, ALL NEEDS MET- NO NEW CONCERNS AT THIS TIME.
--- NOTE | 2023-11-02 19:14 | NUR ---
report received from luís chadwick. pt resting in bed. pt assisted to BSC with unsteady gait and x2 staff assist. pt denies pain. jose CDI. fall precautions in place. call light in reach. all needs met at this time.
--- NOTE | 2023-11-02 20:19 | NUR ---
shift assessment complete, see documentation. pt tolerated hs meds well. pt continues to be confused and pleasant with cares. iv abx continue without issue. pt denies pain. jose cdi. fall precautions in place. call light in reach. all needs met at this time.
[2023-11-03] VITALS (7 sets, daily range): BP systolic 110–118; BP diastolic 74–79; PULSE 92–103; TEMP 97.6–98.1
[2023-11-03] MEDS ORDERED: levoFLOXacin 500 MG TAB PO SCH (08:23)
--- NOTE | 2023-11-03 10:55 | NUR ---
ASSESSMENT COMPLETED EARLIER TODAY. PT IS ALERT AND ORIENTED, IN ROOM. ZOSYN RUNNING THROUGH LEFT HAND, NO S&S OF IV COMPLICATIONS. RIGHT HAND IV REMOVED. BREAKFAST ORDERED. CALL LIGHT WITHIN REACH- ALL NEEDS MET AT THIS TIME.
[2023-11-03] MEDS ORDERED: ZYVOX 600MG600 MG PO (11:30)
[2023-11-03] MEDS ORDERED: LEVAQUIN 5500 MG/TA1 PO (11:30)
[2023-11-03] MEDS ORDERED: LIPITOR20 MG PO (11:33)
--- NOTE | 2023-11-03 12:12 | NUR ---
PT DRESSING WAS SCHANGED. DRESSED PER MD ORDERS. NO DRAINING OR REDNESS IN WOUND. ADDED AN ADDITIONAL FOAM DRESSING ON ABDOMENT- SKIN HAS BLISTERING/SKIN TEAR. CALL LIGHT WITHIN REACH, BED IN LOWEST POSITION. NO OTHER NEEDS AT THIS TIME.
--- NOTE | 2023-11-03 12:29 | NUR ---
Hemodialysis Charge Nurse faxed clinical updates to Aster at [facility] who advised they are able to accept patient today. Transport time was set for 1300. SW met with patient to present and review IM form. Patient verbalized understanding and provided signature. SW placed form in chart and provided copy to patient. SW contacted patient's , Ismael to update him on discharge and transport time. SW then faxed discharge orders to [facility]. Discharge [facility]: [facility]
--- NOTE | 2023-11-03 13:11 | NUR ---
Pt was walked out with [facility] staff in a wheelchair. [facility] to give [facility]. No questions or conerns at this time.
== END 2023-11-03 13:00 | DRG 872 ==
LOC: COL.ER 15:25 → SURG 18:40
PROVIDERS: Emergency Medicine; Nurse Practitioner Family; Physician Assistant; Urology; ADMIT Internal Medicine
PROC: 0TC68ZZ Extirpation of Matter from Right Ureter, Via Natural or Artificial Opening Endoscopic (ICD-10-PCS; principal; 2023-11-02 14:00)
PROC: 0TP98DZ Removal of Intraluminal Device from Ureter, Via Natural or Artificial Opening Endoscopic (ICD-10-PCS; 2023-11-02 14:00)
DX: A41.9 Sepsis, unspecified organism (principal); K50.90 Crohn's disease, unspecified, without complications; I50.32 Chronic diastolic (congestive) heart failure; E87.20 Acidosis, unspecified; N20.1 Calculus of ureter; N31.9 Neuromuscular dysfunction of bladder, unspecified; M81.0 Age-related osteoporosis without current pathological fracture; G47.00 Insomnia, unspecified; R73.9 Hyperglycemia, unspecified; B96.5 Pseudomonas (aeruginosa) (mallei) (pseudomallei) as the cause of diseases classified elsewhere; B96.20 Unspecified Escherichia coli [E. coli] as the cause of diseases classified elsewhere; B95.61 Methicillin susceptible Staphylococcus aureus infection as the cause of diseases classified elsewhere; H26.9 Unspecified cataract; G35 Multiple sclerosis; R65.20 Severe sepsis without septic shock; Z90.710 Acquired absence of both cervix and uterus; Z88.2 Allergy status to sulfonamides; Z88.8 Allergy status to other drugs, medicaments and biological substances; Z88.6 Allergy status to analgesic agent; Z88.1 Allergy status to other antibiotic agents; Z91.030 Bee allergy status; Z91.041 Radiographic dye allergy status; Z91.02 Food additives allergy status; Z87.442 Personal history of urinary calculi; Z87.440 Personal history of urinary (tract) infections; Z79.899 Other long term (current) drug therapy; Z23 Encounter for immunization
CPT/HCPCS: A4314; C1769; J0690; J1650; J2405; J2543; J2704; J3010; J3370; J3480; J7040; J7050; J7120; Q9967